=== PATIENT | male | born 1965 | race Caucasian/White ===

== ENCOUNTER 2017-07-20 23:28 | Observation (INO) | payer MEDICARE, MEDICAID ==
[2017-07-20] MEDS ORDERED: DIAZEPAM 5MG/ML SOL IV ONE (23:45)
[2017-07-20] MEDS ORDERED: DIAZEPAM 5 MG TAB ONE (23:59)
[2017-07-20] MEDS ORDERED: DIAZEPAM 5 MG TAB PO ONE (23:59)
[2017-07-21 00:13] LABS: BASOPHILS % (AUTO) 1 % (0-3); EOSINOPHILS % (AUTO) 2 % (0-9); HEMATOCRIT 35 % (39-53); MEAN CORPUSCULAR HGB CONC 35.3 gm/dl (32.0-36.0); MEAN CORPUSCULAR VOLUME 83 fL (80-100); MONOCYTES % (AUTO) 5.7 % (0-12); NEUTROPHILS % (AUTO) 71.6 % (37-80)
[2017-07-21 00:24] LABS: CALCIUM 8.8 mg/dl (8.5-10.1); POTASSIUM 3.7 mMol/L (3.5-5.1)
[2017-07-21] MEDS: PHENOBARBITAL 64.8 MG PO SCH ×3 (05:20→21:38)
[2017-07-21] MEDS: DOCUSATE SODIUM 100 MG SGL PO SCH ×5 (08:16→20:08)
[2017-07-21] MEDS: LEVETIRACETAM 250 MG TAB PO SCH ×2 (08:16→20:08)
[2017-07-21] MEDS: CALCIUM CARBONATE 500 MG TAB PO SCH ×2 (08:16→21:37)
[2017-07-21] MEDS: PANTOPRAZOLE SODIUM 40 MG ECT PO SCH (08:16)
[2017-07-21] MEDS: LISINOPRIL 20 MG TAB PO SCH (08:17)
[2017-07-21] MEDS: CHOLECALCIFEROL 1,000 IU TAB PO SCH (08:17)
[2017-07-21] MEDS ORDERED: LEVETIRACETAM (PREMIX) 1 GM 1 GM/100 ML SOL IV ONE (13:05)
[2017-07-21] MEDS ORDERED: PHENOBARBITAL 64.8 MG PO STA (13:11)
[2017-07-21] MEDS ORDERED: LEVETIRACETAM IV ONE ×2 (13:15→13:20)
[2017-07-21] MEDS ORDERED: HYDROXYZINE PAMOATE 50 MG CAP PO SCH (15:15)
[2017-07-21] MEDS ORDERED: HYDROXYZINE HYDROCHLORIDE 25 MG/ML SOL IM ONE (15:19)
[2017-07-21] MEDS ORDERED: HYDROXYZINE PAMOATE 50 MG CAP PO ONE (16:04)
[2017-07-21] MEDS ORDERED: [UNRECOGNIZED DRUG - OTHER] PO SCH (21:00)
[2017-07-21] MEDS ORDERED: ZONISAMIDE PO SCH (21:00)
[2017-07-21] MEDS ORDERED: MELATONIN 3 MG TAB PO PRN (21:18)
[2017-07-21 23:17] VITALS: RESP 16
[2017-07-22] MEDS: PHENOBARBITAL 64.8 MG PO SCH (05:11)
[2017-07-22] MEDS: LEVETIRACETAM 250 MG TAB PO SCH (08:08)
[2017-07-22] MEDS: CHOLECALCIFEROL 1,000 IU TAB PO SCH (08:13)
[2017-07-22] MEDS: DOCUSATE SODIUM 100 MG SGL PO SCH (08:13)
[2017-07-22] MEDS: PANTOPRAZOLE SODIUM 40 MG ECT PO SCH (08:13)
[2017-07-22] MEDS: LISINOPRIL 20 MG TAB PO SCH (08:13)
[2017-07-22] MEDS: CALCIUM CARBONATE 500 MG TAB PO SCH (08:13)
[2017-07-22 08:18] VITALS: BP 119/76; PULSE 58; TEMP 97.8; O2SAT 97
[2017-07-22] MEDS ORDERED: HYDROXYZINE PAMOATE 50 MG CAP PO PRN (09:20)
[2017-07-22] MEDS ORDERED: PHENOBARBITAL 64.8 MG PO SCH ×2 (12:00→21:00)
[2017-07-23] MEDS ORDERED: SULFAMETHOXAZOLE/TRIMETHOPRI 800/160 MG PO SCH (09:00)
== END 2017-07-22 11:00 | disposition home or self-care (01) | DRG 100 ==
LOC: ED 23:28 → ACUTE CARE 07-21 00:46
PROVIDERS: ADMIT Family Medicine; ATTEND Family Medicine
DX: R56.9 Unspecified convulsions (principal); G93.6 Cerebral edema; R53.1 Weakness; Z86.69 Personal history of other diseases of the nervous system and sense organs
CPT/HCPCS: 36415; 70450; 80048; 85025; 99217; 99218; 99283; J3410; J1953